=== PATIENT | female | born 1995 | race Caucasian/White ===

== ENCOUNTER → 2019-12-05 09:50 | Outpatient (CLI) | payer BC, SELFPAY | LOC: LAB 09:50 | PROVIDERS: Visit Provider Physician Assistant | DX: J02.9 Acute pharyngitis, unspecified (principal) | CPT/HCPCS: 87070 ==

== ENCOUNTER → 2020-06-25 15:25 | Outpatient (CLI) | payer BC, SELFPAY ==
[2020-06-26 21:10] LABS: COVID19 Sendout Not Detected (Not Detect)
== END ==
PROVIDERS: Visit Provider Physician Assistant
DX: Z11.59 Encounter for screening for other viral diseases (principal); R05 Cough
CPT/HCPCS: 87635